=== PATIENT | female | born 1955 | race Caucasian/White ===

== ENCOUNTER 2022-01-23 09:09 | Outpatient (CLI) | payer MEDICARE, BC, SELFPAY ==
--- NOTE | 2022-01-23 09:15 | CRLHL7_ITS ---
For Patients: As a result of the Century Cures Act, medical imaging exams and procedure reports are released immediately into your electronic medical record. You may view this report before your referring provider. If you have questions, please contact your health care provider. Indication: Cervical myofascial pain syndrome Technique: Multiplanar, multisequence MRI of the cervical spine obtained without contrast. Comparison: No relevant comparison studies available at this institution. Findings: Slight reversal of the cervical lordosis at C4. Grade 1 anterolisthesis at C3-4, grade 1 retrolisthesis C6-7. Vertebral body heights are maintained. No acute fracture or focal compression deformity. Bone marrow signal is unremarkable. No aggressive osseous lesions. Multilevel degenerative disc changes. Included posterior fossa structures are unremarkable. Visualized spinal cord appears normal in course and caliber. No convincing cord signal abnormality. No suspicious findings in the prevertebral or paraspinal soft tissues. C2-C3: Osteophytosis, facet arthropathy. Mild right foraminal narrowing. No spinal canal stenosis. C3-C4: Anterolisthesis, uncovertebral/facet arthropathy. Moderate right foraminal stenosis. No spinal canal stenosis. C4-C5: Disc-osteophyte complex, uncovertebral/facet arthropathy. Moderate bilateral foraminal stenosis. Mild spinal canal narrowing. C5-C6: Disc-osteophyte complex, uncovertebral/facet arthropathy. Moderate bilateral foraminal stenosis. Moderate spinal canal stenosis. C6-C7: Retrolisthesis, disc-osteophyte complex, uncovertebral/facet arthropathy. Moderate bilateral foraminal stenosis. Moderate spinal canal stenosis. C7-T1: No significant foraminal or spinal canal stenosis. Impression: 1. No evidence of acute osseous abnormality. Cervical spondylosis as detailed above. 2. Moderate spinal canal stenosis at C5-6 and C6-7. Mild spinal canal narrowing at C4-5. 3. Moderate neural foraminal stenosis on the right at C3-4, bilaterally at C4-5, C5-6, and C6-7. Dictated by Paz Kelly MD @ 01/23/2022 3:47:56 PM (Electronically Signed)
== END 2022-01-23 09:10 | disposition home or self-care (01) ==
LOC: RAD 09:09
PROVIDERS: PCP Family Medicine; Visit Provider Family Medicine
DX: M54.6 Pain in thoracic spine (principal); M48.02 Spinal stenosis, cervical region; M50.30 Other cervical disc degeneration, unspecified cervical region; M54.12 Radiculopathy, cervical region; M79.18 Myalgia, other site
CPT/HCPCS: 72141

== ENCOUNTER 2022-04-24 16:30 | Outpatient (RCR) | payer MEDICARE, BC, SELFPAY | END 2022-06-08 14:34 | disposition home or self-care (01) | PROVIDERS: PCP Family Medicine; Visit Provider Family Medicine | DX: M79.18 Myalgia, other site (principal); Z51.89 Encounter for other specified aftercare | CPT/HCPCS: 97110; 97140; 97162 ==

== ENCOUNTER 2023-05-22 07:07 | Outpatient (CLI) | payer MEDICARE, BC, SELFPAY ==
--- NOTE | 2023-05-22 07:15 | MR_ITS ---
[address] [address] Phone:?[phone] Fax:?[phone] Referring Physician Information: Moses Eller M.D. [address] [facility] [address] Phone:?[phone] Fax:?[phone] Patient:Taniya Blair D.O.B:?1955 Sex:?Female Phone:? [facility] MRN:?[id number] Exam Date:?05/22/2023 EXAM: MRI of the LEFT KNEE, without contrast CLINICAL: Left knee pain. COMPARISONS: X-rays dated 03/04/2018. TECHNICAL: Multiplanar multisequence MRI of the left knee was obtained. SEDATION: None. CONTRAST: None. FINDINGS: Ligaments: ACL: Intact and unremarkable. PCL: Intact and unremarkable. MCL: Intact and unremarkable. LCL: Intact and unremarkable. Posterolateral corner: Popliteus, biceps femoris, iliotibial band, and the popliteofibular ligament appear intact. Posteromedial corner: Semimembranosus, pes anserine tendons and posterior oblique ligament appear intact. Extensor mechanism: Patellar tendon: Intact, without tendinopathy. Quadriceps tendon: Intact, without tendinopathy. Retinacula: Medial and lateral retinacula are intact. Fat pads: Unremarkable infrapatellar Hoffa's, quadriceps and prefemoral fat pads. Patellofemoral joint: Patella: There is full-thickness chondral loss involving the patellar median ridge extending into the inferior medial patellar facet. There is chondral surface irregularity and grade 2 chondral thinning involving the lateral patellar facet. Trochlea: Grade 2-3 chondral loss involves the medial trochlea. Deep chondral fissuring involves the inferior central trochlea and there is developing deep chondral delamination involving the far lateral trochlea. Medial compartment: Medial meniscus: There is complex tearing throughout the body and throughout the posterior horn extending into the posterior root. Approximately 3 to 4 mm of medial extrusion of the peripheral body segment medial meniscus into the medial gutter. Mild superior displacement of torn meniscal tissue along the periphery of the body segment. Medial cartilage: There is high-grade and full-thickness chondral loss involving the weightbearing extending into the posterior nonweightbearing medial femoral condyle. Grade 2-3 chondral loss involves the peripheral medial tibial plateau. Lateral compartment: Lateral meniscus: Ill-defined complex tearing involving the posterior root as seen on sagittal series 6 images 17-20. Mild degenerative fraying involving the free edge of the body segment on coronal series 8 image 20. No significant meniscal displacement. Lateral cartilage: There is deep chondral fissuring involving the posterior nonweightbearing lateral femoral condyle on axial series 4 image 14 with deep chondral delamination involving the superior posterior nonweightbearing lateral femoral condyle on axial series 4 image 13 and sagittal series 6 image 22. There is deep chondral fissuring involving the lateral tibial plateau on sagittal series 6 image 21. Mild chondral surface irregularity and grade 2 chondral loss involving the lateral tibial plateau. Suspect developing deep chondral delamination involving the medial aspect of the weightbearing lateral femoral condyle on coronal series 8 image 20. Knee joint: Effusion: Small to moderate-sized left knee effusion. Intra-articular bodies:?No convincing bodies identified. Popliteal cyst: Small to moderate size with mild internal complexity/synovitis. Bones: There is mild reactive marrow edema involving the peripheral medial femoral condyle and peripheral medial tibial plateau adjacent to the medial meniscal tear. Small osseous cystic change and adjacent reactive marrow edema involves the lateral aspect of the posterior medial tibial plateau. There is scattered degenerative peripheral marginal spurring seen to involve all 3 compartments of the knee. No evidence of fracture. IMPRESSION: 1. Tearing of the medial and lateral menisci as above. There is extrusion of the body segment medial meniscus into the medial gutter with mild superior displacement of torn meniscal tissue along the superior aspect of the peripheral body segment medial meniscus. 2. Tricompartmental chondromalacia/chondral loss as above. 3. Small to moderate-sized joint effusion with a small to moderate-sized popliteal cyst. 4. No evidence of fracture or ligamentous injury. JCJulia Electronically signed on 05/22/2023 2:22:00 PM by Rohan Vaughn D.O.
== END 2023-05-22 07:08 | disposition home or self-care (01) ==
LOC: MRI 07:08
PROVIDERS: PCP Student in an Organized Health Care Education/Training Program; Visit Provider Orthopaedic Surgery Sports Medicine
DX: M25.562 Pain in left knee (principal); S83.242A Other tear of medial meniscus, current injury, left knee, initial encounter; S83.282A Other tear of lateral meniscus, current injury, left knee, initial encounter; M94.262 Chondromalacia, left knee; M25.462 Effusion, left knee; M71.22 Synovial cyst of popliteal space [Baker], left knee
CPT/HCPCS: 73721

== ENCOUNTER 2023-06-03 07:07 | Day surgery (SDC) | payer MEDICARE, BC, SELFPAY ==
[2023-06-03] VITALS (10 sets, daily range): BP systolic 89–124; BP diastolic 56–81; PULSE 50–64; RESP 12–20; TEMP 36.4–36.6; O2SAT 92–98; BMI 35.6
--- OUTSIDE RECORDS SUMMARY | 2023-06-03 07:10 | XMS_ITS | Clinical Summary ---
Author Name Unknown Organization [facility] Address [place], [place] [address] Care Team Providers Care Retail Supervisor Name Role Phone Sdmichelle Maritza WRAY Primary Care Provider [phone] Allergies Active Allergy Reactions Criticality Noted Date Comments Unlisted Allergen (Include Detail In Comments) Nausea And Vomiting 08/13/2018 narcotics nausea and vomiting. Unknown specific narcotics Oxycodone-Acetaminoph en Nausea Only Medium 08/13/2018 Medications Medication Sig Dispensed Refills Start Date End Date Status Kshgp-[id number]-Fi sh Oil 1,000 (120-180) mg cap Take 1 capsule by mouth 2 times daily. 0 3 Active glucosamine-chondr oitin, 500-400 mg, (COSAMIN DS 500/400) 500-400 mg cap Take 1 capsule by mouth once daily. 0 3 Active atorvastatin (LIPITOR) 20 mg tabletIndications: Mixed hyperlipidemia Take 1 Tablet (20 mg) by mouth at bedtime. 90 Tablet 3 3 Active fluticasone propion-salmeteroL (ADVAIR) 500-50 mcg/Dose diskus inhalerIndications :Mild intermittent asthma without complication INHALE 1 PUFF DAILY FOR MAINTENANCE INCREASE TO TWICE DAILY WITH COLDS & FLARE UP 3 Each 3 3 Active losartan (COZAAR) 50 mg tabletIndications: Essential hypertension Take 1 Tablet (50 mg) by mouth once daily. 90 Tablet 3 3 Active fluticasone (50 mcg per actuation) nasal solution (FLONASE)Indicatio ns:Chronic allergic rhinitis Inhale 1-2 Sprays to both nostrils once daily. 48 mL 3 3 Active montelukast (SINGULAIR) 10 mg tabletIndications: Mild intermittent asthma without complication,Chron ic allergic rhinitis Take 1 Tablet (10 mg) by mouth at bedtime. 90 Tablet 3 3 Active albuterol HFA (ProAir HFA) 90 mcg/actuation inhalerIndications :Mild intermittent asthma without complication Inhale 2 Puffs by mouth every 4 hours if needed for Shortness Of Breath or Wheezing. 8.5 g 2 3 Active gabapentin (NEURONTIN) 300 mg capsuleIndications :Cervical radiculopathy Take 1 Capsule (300 mg) by mouth at bedtime. 45 Capsule 5 3 Active spironolactone (ALDACTONE) 25 mg tabletIndications: Essential hypertension TAKE 1 TABLET(25 MG) BY MOUTH EVERY MORNING 90 Tablet 0 4 Active spironolactone (ALDACTONE) 25 mg tabletIndications: Essential hypertension Take 1 Tablet (25 mg) by mouth every morning. 90 Tablet 3 3 024 Discontinued(Re order (E-cancel not sent)) spironolactone (ALDACTONE) 25 mg tabletIndications: Essential hypertension Take 1 Tablet (25 mg) by mouth every morning. 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 03/19/2014 Mixed hyperlipidemia 08/22/2009 Mild intermittent asthma without complication Chronic allergic rhinitis Pain in joint, multiple sites Gastroesophageal reflux disease without esophagi tis Osteopenia Resolved Problems Problem Noted Date Diagnosed Date Resolved Date Hypertension 08/22/2009 09/23/2015 Elevated blood pressure read ing without diagnosis of hypertension 04/25/2009 08/22/2009 Enthesopathy of unspecified site 04/10/2007 06/18/2012 Plantar fascial fibromatosis 12/26/2006 06/18/2012 Symptomatic menopausal or fe male climacteric states 06/18/2012 Female stress incontinence 0 06/18/2012 Encounters Date Type Department Care Team Description 05/31/2023 Orders Only [facility] [address] [place] [address] Hien Doll MD 1 scan: (1-Ord) 05/29/2023 05/29/2023 2:40 PM FIRE FIGHTER Preop Visit [facility] [address] [place] [address] Hien Doll MD Preoperative Exam (DOS 06/03/23) 05/28/2023 Travel 05/23/2023 Orders Only [facility] Scanner 1 scan: (1-Ord) INCOMING RECORDS-MRI, [facility], 05/23/2023 05/14/[address] [facility] [address] [place] [address] Maritza Sue PA Refill Request (Spironolactone) 05/13/[address] [facility] [address] [place] [address] Maritza Sue PA Refill Request (SPIRONOLACTONE 25MG TAB) 04/14/[address] [facility] [address] [place] [address] Ismael Martinez MD Refill Request (Gabapentin) 03/27/2023 Orders Only [facility] Scanner 1 scan: (1-Ord) RAYUS, FLUOROSCOPICALLY GUIDED INTERLAMINAR CERVICAL EPIDURAL THERAPEUTIC INJ, 03/27/2023 03/04/2023 7:40 AM CDT Office Visit [facility] [address] [place] [address] Ismael Martinez MD Musculoskeletal Problem (Follow up neck and medication management) 03/04/2023 Travel from Last 3 Months Immunizations Name Administration Dates Next Due COVID-19 vaccine (GenwordsBio NTech 30mcg/0.3mL) PF, MDV 03/07/2021 Influenza A (H1N1), Inactivated 04/25/2009 Influenza A (H1N1), Inactiva yolanda (Age >=3 Years) 04/25/2009 Influenza, High-dose Quadriv alent Inactivated 03/28/2022 Influenza, IIV3 (Age >=3 years) 02/22/20,03/06/2019,02/03/2018,02/12,02/09/2015,01/31/2012,01/22/2011 ,02/07/2010,03/06/2006,02/22/2005,02/04,03/02/2003 Influenza, IIV4 02/14/2017, 4,01/21/2013,04/25 Influenza, IIV4 (=>6mos) MDV 02/21/2021,02/19/20 Influenza, Inactivated AIIV4 (Age 65+ Years) Preserv Free 02/12/2023 Influenza, Inactivated IIV3 (Age 65+ Years) Preserv Free 02/21/2021 Pneumococcal Conj 20-valent (Prevnar 20) 06/18/2022 Pneumococcal Poly,23-Valent (Pneumovax) 03/07/2021,03/06/2007 RSV, Bivalent Vaccine Recons tituted (Abrysvo 120MCG/0.5mL) 04/23/2023 Td (Age >=7 Years) 05/26/2018,08/06/1997 Tdap 11/26/2018,09/30/2007,09/05/2007 Zoster (Shingrix-RZV, recombinant) 02/03/2019, Zoster (Zostavax-ZVL, live) 04/04/2016 Family History Medical History Relation Name Comments Cancer-prostate Father 198 4 Hypertension Father Stroke Father Arthritis Mother Osteoarthritis and Rheumatoid Arthritis Heart Disease Mother CHF; 2004 Hypertension Mother Cancer-breast Other cousins Hypertension Sister 3 Anesthesia Problem No Family History Blood Disease No Family History Clotting disorder No Family History Relation Name Status Comments Brother Alive Daughter Alive Father Maternal Grandfather Maternal Grandmother Mother Other cousins Alive Paternal Grandfather Paternal Grandmother Sister 1 Alive Sister 2 Alive Sister 3 Son Alive Social History Tobacco Use Types Packs/Day Years Used Date Smoking Tobacco: Never Smokeless Tobacco: Never Tobacco Cessation:Counseling Given: Yes Alcohol Use Standard Drinks/Week Comments Yes 0 (1 standard drink = 0.6 oz pur e alcohol) minimal PHQ-2 Answer Date Recorded PHQ-2 TOTAL SCORE 0 06/18/2022 Social Connections Answer Date Recorded Frequency of Communication with Friends and Fami ly 0 05/29/2023 Financial Resource Strain Answer Date R ecorded Difficulty of Paying Living Expenses 3 05/29/2023 Difficulty of Paying Living Expenses Not on file 05/29/2023 Food Insecurity Answer Date Recorded Worried About Running Out of Food in the Last Ye ar 1 05/29/2023 Transportation Needs Answer Date Record ed Lack of Transportation (Medical) 1 05/29/2023 Housing Stability Answer Date Recorded Unable to Pay for Housing in the Last Year 1 05/29/2023 Sex and Gender Information Value Date Recorded Sex Assigned at Not on file Gender Identity Not on file Sexual Orientation Not on file Obstetrics History Para Term AB IAB SAB Ectopic Multiple Livin g Live Births 2 2 2 0 0 0 0 0 2 Date Outcome GA Total Labor Labor/2nd/3rd Weight Sex Delivery Anes PTL Vilma A1 A5 Name Cl in Term Term Comments x2 Last Filed Vital Signs Vital Sign Reading Time Taken Comments Blood Pressure 134/80 05/29/2023 2:34 PM FIRE FIGHTER Pulse 66 05/29/2023 2:34 PM FIRE FIGHTER Temperature 36.8 ??C (98.2 ??F) 03/04/2023 7:42 AM CD T Respiratory Rate 16 11/05/2018 1:21 PM CDT Oxygen Saturation 97% 05/29/2023 2:34 PM FIRE FIGHTER Inhaled Oxygen Concentration - - Weight 88.5 kg (195 lb) 05/29/2023 2:34 PM FIRE FIGHTER Height 159.4 cm (5' 2.76) 05/29/2023 2:34 PM CS T Body Mass Index 34.81 05/29/2023 2:34 PM FIRE FIGHTER Plan of Treatment Upcoming Encounters Date Type Department Care Team (Late st Contact Info) Description 09/02/2023 7:40 AM CDT Office Visit [facility] [address] [place] [address] Ismael Martinez MD [address] [place] [address] Health Maintenance Due Date Last Done Comments Depression screening for age 12+ 06/18/2023 06/18/2022, 06/16/2022, 06/09/2020, Additional history exists Mammogram for age 45-75 06/18/2023 06/18/19, 06/12/2021, 05/30/2020, Additional history exists Medicare Wellness for age 65+ 06/18/2023 06/18/2022 BMI (ht and wt on same day) for age 18+ 05/29/2024 05/29/2023, 06/18/2022, 06/01/2021, Additional history exists Lipids for age 45-75 05/22/2027 05/22/2022, 06/01/2021, 06/09/2020, Additional history exists Colonoscopy through age 75 05/31/2027 05/31/2017, Tetanus booster 11/26/2028 11/26/2018, 05/07, 09/30/2007, Additional history exists Tdap Completed 11/26/2018, 09/04, 09/05/2007 Zoster (shingles) series for age 50+ Completed 02/03/2019, 11/26/2018, 04/04/2016 Hepatitis C screening for ag e 18-79 Completed 06/09/2020 DEXA/DXA scan for age 65+ Completed 2021, 07/11/2020, 06/10/2018, Additional history exists Pneumococcal series for age 65+ Completed 06/18/2022, 03/07/2021, 03/06/2007 Influenza for age 65+ Completed 02/12/2023 , 03/28/2022, 02/21/2021, Additional history exists COVID-19 vaccine series Completed 03/01/20, 03/28/2022, 03/07/2021, Additional history exists Medical Devices Implanted Type Area Verification Specialist Device Identifier Shelf Expiration Date Model / Serial / Lot Sut 2 36in Hi-Fi Wht Grn [employer] - [id number] Implanted:Qty: 2 on 03/10/2014 at [facility] Nobl [id number]# / / [id number] Sut 2 36in Hi-Fi Wht Blk Cobraid - [id number] Implanted:Qty: 1 on 03/10/2014 at [facility] Nob[employer] H5150# / / [id number] Sut 2 36in Hi-Fi Wht Blk Cobraid - [id number] Implanted:Qty: 1 on 03/10/2014 at [facility] Nob[employer] H5150# / / [id number] Sut 5 38in Force Fiber Ndl - [id number] Implanted:Qty: 1 on 03/10/2014 at [facility] [employer] 07/04/2018 3910-900- 050# / / [id number] Glenoid Szsm 30mm Aeq Perform - [id number] Implanted:Qty: 1 on 03/10/2014 at [facility] Left: Shoulder [employer] [id number]# / [id number] / Stem Hum Sz3a Ascend Flex Std - [id number] Implanted:Qty: 1 on 03/10/2014 at [facility] Left: Shoulder [employer] [id number]# / [id number] / Head Hum [id number] Aequalis Hi Off - [id number] Implanted:Qty: 1 on 03/10/2014 at [facility] Left: Shoulder [employer] HYW854# / [id number] / Cmnt Bone 20g Simplex P Non Atb Mv - [id number] Implanted:Qty: 1 on 03/10/2014 at [facility] Left: Shoulder [employer] 6188-1-01 0# / / [id number] Glenoid Szsm 30mm Aeq Perform - [id number] Implanted:Qty: 1 on 08/13/2018 by Mahesh Marti MD at [facility] Right: Shoulder [employer] 03/20/2023 [id number]# / [id number] / Head Hum [id number] Aequalis Hi Off - [id number] Implanted:Qty: 1 on 08/13/2018 by Mahesh Marti MD at [facility] Right: Shoulder [employer] 03/04/2023 [id number]# / [id number] / Stem Hum Sz3b Ascend Flex Std - [id number] Implanted:Qty: 1 on 08/13/2018 by Mahesh Marti MD at [facility] Right: Shoulder [employer] 07/03/2023 [id number]# / [id number] / Cmnt Bone 20g Simplex P Non Atb Mv - [id number] Implanted:Qty: 1 on 08/13/2018 by Mahesh Marti MD at [facility] Right: Shoulder [employer] 08/03/2020 6188-1-01 0# / / [id number] Procedures Procedure Name Priority Date/Time Associated Diagnosis Comments POTASSIUM,ISTAT Routine 05/29/2023 3:12 PM FIRE FIGHTER Pre-op examination HEMOGLOBIN Routine 05/29/2023 3:08 PM FIRE FIGHTER Pre-op examination EKG 12 LEAD Routine 05/29/2023 12:00 AM FIRE FIGHTER Pre-op examination SCAN CORRESP-IMAGING 05/23/2023 12:00 AM FIRE FIGHTER SCAN-OPERATIVE/PROC EDURE REPORT 03/27/2023 12:00 AM FIRE FIGHTER from Last 3 Months Results * POTASSIUM,ISTAT (05/29/2023 3:12 PM FIRE FIGHTER) POTASSIUM, POCT 4.4 3.5 - 5.0 mmol/L 05/29/2023 3:15 PM FIRE FIGHTER [facility] Blood BLOOD SPECIMEN / Unknown 05/29/2023 3:12 PM FIRE FIGHTER 05/29/2023 3:14 PM FIRE FIGHTER Hien Doll MD CHEMISTRY [facility] [address] [place] [address], * HEMOGLOBIN (05/29/2023 3:08 PM FIRE FIGHTER) HEMOGLOBIN 12.8 12.0 - 16.0 g/dL 05/29/2023 3:11 PM FIRE FIGHTER [facility] MCV 93 80 - 100 fL 05/29/2023 3:11 PM FIRE FIGHTER [facility] Blood BLOOD SPECIMEN / Unknown Venipuncture / Unknown 05/29/2023 3:08 PM FIRE FIGHTER 05/29/2023 3:08 PM FIRE FIGHTER Hien Doll MD HEMATOLOGY [facility] [address] [address], * EKG 12 LEAD (05/29/2023 12:00 AM FIRE FIGHTER) Hien Doll MD EKG ORD * SCAN CORRESP-IMAGING (05/23/2023 12:00 AM FIRE FIGHTER) Anatomical Region Laterality Modality Other Scanner OTHER * SCAN-OPERATIVE/PROCEDURE REPORT (03/27/2023 12:00 AM FIRE FIGHTER) Scanner OTHER from Last 3 Months Advance Directives Documents on File Type Date Recorded Patient Intake Counselor Expl anation Healthcare Directive 04/06/2010 010 Latest Code Status on File Code Status Date Activated Date Inactivated Comments Full Code 11/05/2018 7:25 AM 11/05/2018 3:33 PM Question Answer Comments Code Status Discussion: Discussed Code Status History Code Status Date Activated Date Inactivated Comments Full Code 08/13/2018 7:41 PM 08/14/2018 6:40 PM Full Code 08/13/2018 11:15 AM 08/13/2018 7:41 PM Full Code 03/10/2014 6:57 PM 03/11/2014 6:01 PM Full Code 03/10/2014 11:55 AM 03/10/2014 6:57 PM Care Teams Retail Supervisor Relationship Specialty Start Date End Date Maritza Sue PA [address] [place] [address] PCP - General Physician Tax Commissioner 05/22/22
--- NOTE | 2023-06-03 07:47 | W.PM.H&PU ---
History & Physical Update History & Physical Update H&P Reviewed and patient assessed: No changes noted
[2023-06-03] MEDS: SODIUM CHLORIDE 0.9 % (FLUSH) 10 ML SYRINGE IVF (07:51)
[2023-06-03] MEDS: LACTATED RINGERS 1000 ML 1,000 ML 100 ML IV (07:52)
[2023-06-03] MEDS: SCOPOLAMINE 1 MG/3 DAY PATCH 1 PATCH TRANSDERMA (07:52)
[2023-06-03] MEDS: CEFAZOLIN 2 GM in 0.9 % SODIUM CHLORIDE Mini-bag 100 ML IVPB (09:53)
[2023-06-03] MEDS: ROPIVACAINE 0.5% 30 ML 150 MG INJECTION (10:31)
--- NOTE | 2023-06-03 10:42 | PM.ORPRC ---
Procedure Note Date of procedure: 06/03/23 Procedure: PREOPERATIVE DIAGNOSIS: 1. Left knee medial meniscus tear 2. 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 Left knee grade 3 chondromalacia medial compartment POSTOPERATIVE DIAGNOSIS: 1. Left knee medial meniscus tear 2. 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 Left knee grade 3 chondromalacia medial compartment PROCEDURE: 1. Left knee arthroscopic partial medial meniscectomy SURGEON: Moses Eller M.D. OUTSIDE PLANT TECHNICIAN: Perfecto FRENCH. Of note, an car rental sales assistant was critical for this case to aid in patient positioning, knee manipulation, instrument exchange, and closure. ANESTHESIA: Spinal EBL: 5 mL TOURNIQUET: 30 min at 300 torr COMPLICATIONS: None evident INDICATIONS: The patient is a pleasant 68-year-old female who has experienced left knee pain particularly with any twisting or turning. Physical exam was concerning for medial meniscus tear, this was confirmed on MRI. Additionally, attempted nonoperative management has been tried, and failed. Thus, surgery was recommended. FINDINGS: Full-thickness chondral loss diffusely throughout the trochlear groove with grooving/erosion into the trochlea. Also grade 3-4 chondromalacia broadly throughout the patella including median ridge and lateral facet. Osteophytes of the inferior patella and within the notch of the femur. Medial compartment showed grade 3 chondromalacia diffusely and a small component grade 4 chondromalacia weight-bearing surface medial femoral condyle. Complex degenerative medial meniscus tearing noted. This extended from the posterior root region around to the midbody. Lateral compartment showed grade 1 chondromalacia of lateral femoral condyle and 2 of the lateral tibial plateau. The lateral meniscus intact. ACL and PCL intact and robust. Large Carranza cyst encountered during the case. DESCRIPTION OF PROCEDURE: After a thorough discussion of risks, benefits, and alternatives, the patient was brought to the operating room and placed upon the operating table. Induction of anesthesia was undertaken as previously noted. 2 g IV Ancef was administered within 1 hr of incision preoperatively. Appropriate time-out was performed identifying proper patient, site, and procedure. The left lower extremity was prepped and draped in the appropriate sterile fashion using ChloraPrep. The limb was exsanguinated and tourniquet inflated. Anterolateral and anteromedial portals were established with an 11 blade, and a diagnostic arthroscopy was performed. This identified the findings as noted above. Following the diagnostic arthroscopy, a partial medial menisectomy was performed with the combination of basket forceps and a motorized shaver. Following this, the meniscus was re-probed and found to be stable. Approximately 40-50 % of the overall meniscus required resection. At this stage, the shaver was reinserted into the suprapatellar pouch and all remaining meniscal debris was evacuated. Instruments were removed, excess fluid was drained, and closure performed with 4-0 Monocryl with Steri-Strips. Dressings were applied, the tourniquet deflated, and the patient was awoken from anesthesia and transferred to the PACU in stable condition. PLAN: 1. Weightbear as tolerated operative extremity. Crutch / walker ambulation assistance PRN. Straight leg raise to be initiated starting tomorrow by the patient. 2. Ice, acetominophen and/or ibuprofen, and tramadol for pain as needed. 3. Knee range of motion and quad sets/straight leg raise regularly 4. Follow up with PA visit in 7-10 days. for a wound check. Initiate physical therapy at that time
--- NOTE | 2023-06-03 10:53 | W.ANESCHARGE ---
Anesthesia Charges Start Date/Time Anesthesia Start Date: 06/03/23 Anesthesia Start Time: 09:48 Stop Date/Time Anesthesia Stop Date: 06/03/23 Anesthesia Stop Time: 10:48
[2023-06-03] MEDS: TRAMADOL HCL 50 MG TABLET PO (12:07)
== END 2023-06-03 12:17 | disposition home or self-care (01) ==
PROVIDERS: PCP Student in an Organized Health Care Education/Training Program; Visit Provider Orthopaedic Surgery Sports Medicine
PROC: (CPT 29870; principal; 2023-06-03 09:15)
DX: M23.222 Derangement of posterior horn of medial meniscus due to old tear or injury, left knee (principal); M22.42 Chondromalacia patellae, left knee
CPT/HCPCS: 29881; 01400; A9270; J0690; J1100; J1885; J2250; J2405; J2704; J2795; J3010; J7120

== ENCOUNTER 2023-07-15 11:00 | Outpatient (RCR) | payer MEDICARE, BC, SELFPAY ==
--- NOTE | 2023-06-12 14:18 | PT.OPEX ---
PT [place] Outpatient Eval PT [facility] Outpatient Eval Start: 06/12/23 07:53 Freq: Status: Active Protocol: Document 06/12/23 07:53 ENM (Rec: 06/12/23 13:53 ENM [id number]) E-signed By Noa Asencio, DPT Physical Therapy Outpatient Evaluation Insurance Information Recert Due Date 09/04/23 Insurance Name Medicare B Medical Diagnosis s/p left knee arthroscopic partial medial meniscectomy DOS 06/03/23 Treating Diagnosis left knee pain, decreased knee ROM, knee swelling, decreased knee strength, impaired gait Referring MD Hernandes Subjective Subjective Patient presents to PT 1.5 weeks s/p left knee partial medial meniscectomy for posterior root tear. This started after an injury doing pilates. Was managing it with injections but then it really stiffened up. Also had a cyst in the back of the knee which was preventing further motion. Even going into surgery she was not to bend her knee well. Since surgery she has been able to walk on her leg without difficulty but she can 't seem to bend it. She stays active doing pilates, spin bike and walking. Also performs caregiving duties for her granddaugher. 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 Avoid deep squatting. Weight Bearing Status Weight Bear as Tolerated Objective Other/Pertinent Objective Knee AROM L knee 0-5- 61 R knee 0-0-123 Strength: Knee extensors: poor-fair quad set ~10 deg extensor lag with SLR Gait/balance: Patient ambulating with decreased L knee flexion, extension and weight acceptance patient sitting edge of seat with knee ext for comfort, knee also extended for STS Observation/swelling: steri strips still in place over incisions, mild yellow bruising present over anterior knee superior pole of patella L 51 cm R 48.8 cm middle of patella L 48 cm R 48 cm inferior pole of patella L 42. 6 cm R 42 cm Functional Test Performed & Score LEFS: Assessment Assessment/Impression Patient is a 68 year old female presenting 1.5 weeks s/ p left medial meniscectomy for posterior horn tear. Their primary complaint is of ongoing stiffness after the surgery making it difficult to bend her knee with ambulation and performing the stairs. Even prior to surgery their ROM was significantly limited due to pain and a cyst in the back of the knee. Upon assessment patients concordant pains brought on with end range knee flexion and ambulation. Knee ROM limited to 0-5-61 on the left side. Global swelling measurement 3 cm compared to contralateral side. Quad weakness present with SLR as well as poor neuromuscular activation with setting. Gait impairments include decreased stance time of LLE, decreased knee flexion throughout gait cycle and decreased knee extension. Impairments consistent with s/p knee surgery. Soraya would greatly benefit from skilled PT to address impairments stated above in order to perform functional mobility and caregiving duties without significant discomfort or difficulty. Primary Functional Limitations walking, bending the knee, stairs Plan of Care Rehabilitation Potential Good Physical Therapy Goals In 7-9 visits: 1. Patient will be IND with HEP and self management of symptoms 2. Patient will improve pain free knee ROM to 0-0-110 for improved gait mechanics 3. Patient will be able to navigate the stairs without difficulty 4. Patient will be able to perform at least 5 STS without UE use to demonstrate improvements in LE functional strength 5. Patient will improve LEFS from 29 to 38 (MDC 9) to demonstrate improvements in LE functional ability Coordination/Communication With Referral Source Treatment Plan/Direct Interventions Electrical Stimulation,Gait Training,Ice/Cold/ Vasopneumatic,Joint Mobilization,Manual Therapy, Neuromuscular Re-ed,Self-Care/ Home Management,Therapeutic Activities,Therapeutic Exercises Frequency/Duration 1x a week for 7-9 visits Patient Will Be Discharged From Therapy Completion of LTG(s), Independent w/HEP Evaluation Billing Untimed Code Treatment Minutes 22 Complexity Low Certification Information Initial Certification Date 06/12/23 Ending Certification Date 09/04/23 Provider Signature Shows Agreement With POC & Medical Necessity Physician Signature & Date Requested Please Sign/Date Here Physician Comment/Change : Physician NPI Number #
== END 2023-10-11 12:20 | disposition home or self-care (01) ==
PROVIDERS: PCP Student in an Organized Health Care Education/Training Program; Visit Provider Physician Assistant Surgical
DX: Z98.890 Other specified postprocedural states (principal); Z51.89 Encounter for other specified aftercare
CPT/HCPCS: 97110; 97140; 97161

== ENCOUNTER 2024-04-23 22:14 | Emergency (ER) | payer MEDICARE, BC, SELFPAY ==
[2024-04-23 22:30] VITALS: BP 116/71; PULSE 101; RESP 20; TEMP 36.8; O2SAT 90; BMI 33.0
--- NOTE | 2024-04-23 23:12 | CRLHL7_ITS ---
For Patients: As a result of the Century Cures Act, medical imaging exams and procedure reports are released immediately into your electronic medical record. You may view this report before your referring provider. If you have questions, please contact your health care provider. INDICATION: Fever, cough, chills, wheezing, chest pain. TECHNIQUE: Chest 2 view. COMPARISON: None. FINDINGS: Cardiovascular: Mild cardiomegaly. Normal pulmonary vascularity. Tortuous aorta. Lungs and pleural spaces: Lungs are clear without focal consolidation. No sign of pleural effusion. No pneumothorax identified. Bones and soft tissues: Degenerative changes of the spine. Partially visualized bilateral shoulder arthroplasties. IMPRESSION: Mild cardiomegaly. No other acute findings. Dictated by Kay Mendieta MD @ 04/23/2024 11:52:14 PM (Electronically Signed)
[2024-04-23 23:25] LABS: PCR FLU A POSITIVE PCR FLU A (Negative); PCR FLU B Negative PCR FLU B (Negative); PCR RSV Negative PCR RSV (Negative); SARS PCR* Negative SARS-CoV-2 (Negative)
[2024-04-23 23:34] LABS: Basophils Absolute Auto 0.02 K/uL (0.00-0.30); Basophils Percent Auto 0.2 % (0.0-3.0); Eosinophils Absolute Auto 0.02 K/uL (0.00-0.50); Eosinophils Percent Auto 0.2 % (0.0-7.0); Hematocrit 39.7 % (33.0-51.0); Immature Granulocytes Abs Auto 0.01 K/uL (0.00-0.30); Immature Granulocytes Pct Auto 0.1 %; Lymphocytes Percent Auto 6.3 % (20-44); Mean Corpuscular HGB Conc 33 gm/dL (32-36); Mean Corpuscular Hemoglobin 30 pg (26-34); Mean Corpuscular Volume 92 fL (80-100); Monocytes Percent Auto 8.6 % (0.0-11.0); Neutrophils Percent Auto 84.6 % (42.0-72.0); Platelet Count* 209 K/uL (140-440); RDW Coefficient of Variation % 13.3 % (11.5-15.5); Red Blood Count 4.32 m/uL (4.00-5.20); White Blood Count* 9.97 K/uL (4.50-11.00)
[2024-04-23 23:40] LABS: Slide Review Reflex No
[2024-04-23 23:50] LABS: Chloride* 102 mmol/L (96-114); Potassium* 4.2 mmol/L (3.6-5.1); Sodium* 134 mmol/L (135-149)
[2024-04-23 23:52] LABS: Creatinine* 0.9 mg/dL (0.5-1.5); Estimated Glomerular Filt Rate 70 ml/min
[2024-04-23 23:53] LABS: Anion Gap 5 mEq/L (7-15); Blood Urea Nitrogen* 16 mg/dL (7-30); Calcium* 9.6 mg/dL (8.4-10.6); Carbon Dioxide* 27 mmol/L (20-32); Glucose* 108 mg/dL (60-115)
--- NOTE | 2024-04-24 00:26 | ED.GENADULT ---
HPI - General Adult General Chief complaint: Cough Stated complaint: Cough, Fever, chest pain, weakness Time Seen by Provider: 04/23/24 23:06 History of Present Illness HPI narrative: Patient is a 69-year-old woman who presents with general malaise body aches fatigue cough and shortness of breath of 2 days duration. She has history of asthma. She has had no hemoptysis chest pain shortness a breath nausea vomiting or chills. She had been her usual state of health with no other major complaints. Her grand children are sick at this time. Patient has had no recent medication changes. Related Data Home Medications ?Medication ?Instructions ?Recorded ?Confirmed albuterol 90 mcg/actuation aerosol 2 spray inhalation PRN 12/15/21 04/17/24 inhaler atorvastatin 20 mg tablet 20 mg PO .Bedtime 12/15/21 04/17/24 fluticasone 500 mcg-salmeterol 50 ea inhalation 12/15/21 04/17/24 mcg/dose blistr powdr for inhalation (Delmer Graham) fluticasone propionate 50 1 intranasal DAILY 12/15/21 04/17/24 mcg/actuation nasal spray,suspension losartan 50 mg tablet 50 mg PO DAILY 12/15/21 04/17/24 montelukast 10 mg tablet 10 mg PO .Bedtime 12/15/21 04/17/24 spironolactone 25 mg tablet 25 mg PO DAILY 12/15/21 04/17/24 gabapentin 300 mg capsule 300 mg PO QHS 09/14/22 04/17/24 tizanidine 4 mg tablet 4 mg PO 3XD 04/17/24 04/17/24 Allergies Allergy/AdvReac Type Severity Reaction Status Date / Time narcotics AdvReac Uncoded 04/17/24 08:53 Review of Systems Status of ROS: Reports: 10 or more systems reviewed and unremarkable except as noted in History and below [facility] Medical History KEON (obstructive sleep apnea) ?G47.33 - Obstructive sleep apnea (adult) (pediatric) (ICD-10) Hypercalcemia ?E83.52 - Hypercalcemia (ICD-10) GERD (gastroesophageal reflux disease) ?K21.9 - Gastro-esophageal reflux disease without esophagitis (ICD-10) DJD of right shoulder ?M19.011 - Primary osteoarthritis, right shoulder (ICD-10) Chronic allergic rhinitis ?J30.9 - Allergic rhinitis, unspecified (ICD-10) Asthma ?J45.909 - Unspecified asthma, uncomplicated (ICD-10) History of shingles (~2014) ?Z86.19 - Personal history of other infectious and parasitic diseases (ICD-10) Surgical History S/P arthroscopic partial medial meniscectomy of left knee (06/03/23) ?Z98.890 - Other specified postprocedural states (ICD-10) ?Z87.828 - Personal history of other (healed) physical injury and trauma (ICD-10) S/P arthroscopy of left shoulder (06/10/13) ?Z98.890 - Other specified postprocedural states (ICD-10) H/O sinus surgery (~1999) ?Z98.890 - Other specified postprocedural states (ICD-10) History of bunionectomy of right great toe (04/09/16) ?Z98.890 - Other specified postprocedural states (ICD-10) H/O parathyroidectomy (~2018) ?E89.2 - Postprocedural hypoparathyroidism (ICD-10) History of left shoulder replacement (~2013) ?Z96.612 - Presence of left artificial shoulder joint (ICD-10) History of right shoulder replacement (~2018) ?Z96.611 - Presence of right artificial shoulder joint (ICD-10) History of hysterectomy ?Z90.710 - Acquired absence of both cervix and uterus (ICD-10) History of dilation and curettage ?Z98.890 - Other specified postprocedural states (ICD-10) Social History Smoking Status: Never smoker Do you use any of these nicotine containing products: None Second hand tobacco smoke exposure: No ( was a smoker) How often do you have a drink containing alcohol: 2-4 times a month How many standard drinks containing alcohol do you have on a typical day: 1 or 2 AUDIT-C Alcohol total score: 2 Exam Narrative: Exam Narrative: EXAM GENERAL: Patient appears mildly ill appearing. EYES: No scleral icterus. ENT: Tympanic membranes and oropharynx normal. THYROID: no thyroid nodules or thyromegaly. LYMPH: No supraclavicular or cervical lymphadenopathy. SKIN: Visible skin seen during exam normal or with benign process only. EXT: No dependent lower extremity pedal edema. HEART: Regular rate and rhythm with no murmurs, rubs, or gallops. LUNGS: Clear to auscultation bilaterally with no crackles or wheezes. ABD: Soft, non tender, non distended. PSYCH: Good eye contact, speech is not pressured. Const: Vital Signs, click to edit/add: Vital Signs - 24 hr 04/23/24 22:30 Temperature 98.2 F Pulse Rate [Right Pulse Oximeter] 101 H Respiratory Rate 20 Blood Pressure [Ri ght Upper Arm] 116/71 Pulse Oximetry 90 Oxygen Delivery Me thod Room Air Course Course ED Course: Patient seen and examined. Vital Signs Vital signs: Initial Vital Signs Temperature 98.2 F 04/23/24 22:30 Temperature Source Temporal Artery Scan 04/23/24 22:30 Pulse Rate 101 H 04/23/24 22:30 Pulse Rhythm Regular 04/23/24 22:30 Respiratory Rate 20 04/23/24 22:30 Blood Pressure 116/71 04/23/24 22:30 Blood Pressure Mean 86 04/23/24 22:30 Blood Pressure Position Sitting 04/23/24 22:30 Pulse Oximetry 90 04/23/24 22:30 Oxygen Delivery Method Room Air 04/23/24 22:30 Vital Signs Temperature 98.2 F 04/23/24 22:30 Pulse Rate 101 H 04/23/24 22:30 Respiratory Rate 20 04/23/24 22:30 Blood Pressure 116/71 04/23/24 22:30 Pulse Oximetry 90 04/23/24 22:30 Oxygen Delivery Method Room Air 04/23/24 22:30 Temperature 98.2 F 04/23/24 22:30 Pulse Rate 101 H 04/23/24 22:30 Respiratory Rate 20 04/23/24 22:30 Blood Pressure 116/71 04/23/24 22:30 Pulse Oximetry 90 04/23/24 22:30 Oxygen Delivery Method Room Air 04/23/24 22:30 Medical Decision Making MDM Narrative Medical decision making narrative: Patient presents not hypoxic with fevers chills cough and general malaise. She test positive for influenza A. She has a normal white blood cell count unremarkable chest x-ray. At this time differential diagnosis includes influenza a RSV COVID-19 pneumonia bronchitis pleural effusion congestive heart failure. Will be treating her with Tamiflu for 5 days rotation of Tylenol Motrin rest and fluids. Lab Data Labs: Lab Results 04/23/24 04/23/24 04/23/24 Range/Units 22:40 23:12 23:23 WBC 9.97 (4.50-11.00) K/uL RBC 4.32 (4.00-5.20) m/uL Hgb 13.0 (12.0-16.0) gm/dL Hct 39.7 (33.0-51.0) % MCV 92 (80-100) fL MCH 30 (26-34) pg MCHC 33 (32-36) gm/dL RDW Coeff of Ju 13.3 (11.5-15.5) % Plt Count 209 (140-440) K/uL Neut % (Auto) 84.6 H (42.0-72.0) % Lymph % (Auto) 6.3 L (20-44) % [place] % (Auto) 8.6 (0.0-11.0) % Eos % (Auto) 0.2 (0.0-7.0) % Baso % (Auto) 0.2 (0.0-3.0) % Neut # (Auto) 8.40 H (1.7-7.0) K/uL Lymph # (Auto) 0.60 L (0.90-2.90) K/uL [place] # (Auto) 0.90 (0.00-0.90) K/UL Eos # (Auto) 0.02 (0.00-0.50) K/uL Baso # (Auto) 0.02 (0.00-0.30) K/uL Abs Immat Gran (auto) 0.01 (0.00-0.30) K/uL Imm/Tot Granulo (auto) 0.1 % Sodium 134 L (135-149) mmol/L Potassium 4.2 (3.6-5.1) mmol/L Chloride 102 (96-114) mmol/L Carbon Dioxide 27 (20-32) mmol/L Anion Gap 5 L (7-15) mEq/L BUN 16 (7-30) mg/dL Creatinine 0.9 (0.5-1.5) mg/dL Estimated Creat Clear 46.50 Estimated GFR 70 ml/min Glucose 108 (60-115) mg/dL Calcium 9.6 (8.4-10.6) mg/dL SARS-CoV-2 (PCR) Negative SARS-CoV-2 (Negative) Influenza Type A (PCR) POSITIVE PCR FLU A A (Negative) Influenza Type B (PCR) Negative PCR FLU B (Negative) RSV (PCR) Negative PCR RSV (Negative) POC Troponin I 0.00 L (0.01-0.04) ng/ml Discharge Plan Discharge Clinical Impression: Influenza A Patient Disposition: Home, Self-Care Condition: Stable Instructions: Influenza (ED) Additional Instructions: Tamiflu Tylenol Motrin Rest Fluids Follow-up with your doctor as needed. Activity Level: No Restrictions Discharge Diet: Regular Prescriptions: No Action fluticasone propionate 50 mcg/actuation spray,suspension 1 intranasal DAILY albuterol 90 mcg/actuation aerosol 2 spray inhalation PRN spironolactone 25 mg tablet 25 mg PO DAILY losartan 50 mg tablet 50 mg PO DAILY atorvastatin 20 mg tablet 20 mg PO .Bedtime montelukast 10 mg tablet 10 mg PO .Bedtime fluticasone propion-salmeterol [Wixela Inhub] 500-50 mcg/dose blister with device inhalation gabapentin 300 mg capsule 300 mg PO QHS tizanidine 4 mg tablet 4 mg PO 3XD Follow Up/Referrals: Maritza Sue PA-C [Primary Care Provider] - Stand Alone Forms: [place] [employer] Info Instructions
[2024-04-24 00:37] VITALS: RESP 22; TEMP 36.8
== END 2024-04-24 00:38 | disposition home or self-care (01) ==
LOC: ED 04-24 00:35
PROVIDERS: Student in an Organized Health Care Education/Training Program; Emergency Provider Internal Medicine; PCP Student in an Organized Health Care Education/Training Program
DX: J10.1 Influenza due to other identified influenza virus with other respiratory manifestations (principal)
CPT/HCPCS: 36415; 71046; 80048; 84484; 85025; 87631; 99283; 99284

== ENCOUNTER 2024-09-22 06:44 | Outpatient (CLI) | payer MEDICARE, BC, SELFPAY | END 2024-09-22 06:45 | disposition home or self-care (01) | LOC: INJ CL 06:48 | PROVIDERS: PCP Student in an Organized Health Care Education/Training Program; Visit Provider Family Medicine | DX: M54.16 Radiculopathy, lumbar region (principal); M51.369 Other intervertebral disc degeneration, lumbar region without mention of lumbar back pain or lower extremity pain | CPT/HCPCS: 64483; J1100; Q9966 ==

== ENCOUNTER 2024-11-27 06:56 | Outpatient (CLI) | payer MEDICARE, BC, SELFPAY | END 2024-11-27 06:57 | disposition home or self-care (01) | LOC: INJ CL 06:57 | PROVIDERS: PCP Student in an Organized Health Care Education/Training Program; Visit Provider Family Medicine | DX: M54.16 Radiculopathy, lumbar region (principal); M51.369 Other intervertebral disc degeneration, lumbar region without mention of lumbar back pain or lower extremity pain | CPT/HCPCS: 62323; J0702; Q9966 ==